=== PATIENT | male | born 1960 | race Caucasian/White ===

== ENCOUNTER 2020-06-25 12:52 | Inpatient (IN) | payer OTHER ==
[~2020-06-25] VITALS: Ht 177.8 cm; Wt 110.0 kg
[2020-06-25 13:10] LABS: BASOPHILS % (AUTO) 0.4 % (0.0-2.0); EOSINOPHILS % (AUTO) 0.1 % (1.0-6.0); HEMATOCRIT 41.7 % (41-53); HEMOGLOBIN 13.9 g/dL (13.5-17.5); LYMPHOCYTES # (AUTO) 0.6 K/uL (1.0-4.8); LYMPHOCYTES % (AUTO) 10.2 % (22.0-44.0); MEAN CORPUSCULAR HEMOGLOBIN 27.9 pg (26.0-34.0); MEAN CORPUSCULAR HGB CONC 33.2 G/dL (31.0-37.0); MEAN CORPUSCULAR VOLUME 84 fL (80-100); MONOCYTES # (AUTO) 0.3 K/uL (0.1-1.0); MONOCYTES % (AUTO) 5.2 % (2.0-9.0); NEUTROPHILS # (AUTO) 5.3 K/uL (1.8-7.7); NEUTROPHILS % (AUTO) 84.1 % (40.0-70.0); PLATELET COUNT (AUTO) 132 K/uL (150-450); RED BLOOD CELL COUNT(AUTO) 4.97 MIL/uL (4.50-5.90); RED CELL DISTRIBUTION WIDTH 14.9 % (11.5-14.5)
[2020-06-25] MEDS ORDERED: ATOR80TA PO (13:20)
[2020-06-25] MEDS ORDERED: ASPI81TA39 PO (13:20)
[2020-06-25] MEDS ORDERED: LISI-662 PO (13:20)
[2020-06-25] MEDS ORDERED: METO-391 PO (13:20)
[2020-06-25 13:30] LABS: ANION GAP 10 mmol/L (8-16); CALCIUM, TOTAL 8.2 mg/dL (8.8-10.5); CARBON DIOXIDE 22 mmol/L (22-29); CHLORIDE 100 mmol/L (98-107); GLOMERULAR FILTR. RATE CALC > 60 mL/min (>60); GLUCOSE,RANDOM 154 mg/dL (70-110); POTASSIUM 4.1 mmol/L (3.5-5.1); SODIUM SERUM 132 mmol/L (136-145); UREA NITROGEN, BLOOD 18 mg/dL (7-18)
[2020-06-25 13:36] LABS: LACTIC ACID 1.3 mmol/L (0.4-2.0)
[2020-06-25 13:46] LABS: B-TYPE NATRIURETIC PEPTIDE < 5 pg/mL (0-100)
[2020-06-25 13:52] LABS: ALANINE AMINOTRANSFERASE 105 U/L (12-78); ALBUMIN 3.2 g/dL (3.4-5.0); ALKALINE PHOSPHATASE 102 U/L (46-116); ASPARTATE AMINOTRANSFERASE 73 U/L (15-37); BILIRUBIN,TOTAL 0.7 mg/dL (0.1-1.0); C-REACTIVE PROTEIN QUANT 5.67 mg/dL (0.00-0.30); CREATINE KINASE, TOTAL ONLY 137 U/L (39-308); FERRITIN 555 ng/mL (26-388); LACTATE DEHYDROGENASE 502 U/L (85-227); LIPASE 243 U/L (73-393); TOTAL PROTEIN, SERUM 7.3 g/dL (6.4-8.2)
[2020-06-25 13:53] LABS: D-DIMER 0.5 mg/L FEU (0.00-0.50); PROTHROMBIN TIME 10.6 SEC (9.4-11.6)
[2020-06-25 13:55] LABS: INFLUENZA TYPE A NEGATIVE FOR TYPE A (NEGATIVE); INFLUENZA TYPE B NEGATIVE FOR TYPE B (NEGATIVE)
[2020-06-25] MEDS ORDERED: CefTRIAXone 1 GM/DEXTROSE 50 ML IV ONE (14:15)
[2020-06-25] MEDS ORDERED: ACETAMINOPHEN 500 MG TABLET PO ONE (14:15)
[2020-06-25] MEDS ORDERED: AZITHROMYCIN 500 MG/NS 250 ML IV ONE (14:15)
[2020-06-25] MEDS ORDERED: ONDANSETRON HCL 4 MG/2 ML VIAL IVP PRN (16:00)
[2020-06-25] MEDS ORDERED: MAGNESIUM HYDROXIDE SUSPENSION 30 ML UDCUP PO PRN (16:00)
[2020-06-25] MEDS ORDERED: MORPHINE SULFATE 2 MG/ML SYRINGE IVP PRN (16:00)
[2020-06-25] MEDS ORDERED: BISACODYL 10 MG RECTAL RECTAL SUPPOSITORY PR PRN (16:00)
[2020-06-25 16:46] VITALS: BP 120/74
[2020-06-25] MEDS: HEPARIN SODIUM,PORCINE 5,000 UNITS/ML VIAL SQ SCH ×2 (18:11→23:34)
[2020-06-25 20:00] VITALS: BP 130/74
[2020-06-25] MEDS: DOCUSATE SODIUM 100 MG CAPSULE PO SCH (20:12)
[2020-06-25] MEDS: DEXAMETHASONE 4 MG TABLET PO SCH (20:13)
[2020-06-25] MEDS: ACETAMINOPHEN 325 MG TABLET PO PRN (21:09)
[2020-06-26] MEDS: ZOLPIDEM TARTRATE 5 MG TABLET PO PRN ×2 (00:51→20:43)
[2020-06-26 05:45] VITALS: BP 128/89
[2020-06-26 07:34] LABS: C-REACTIVE PROTEIN QUANT 8.03 mg/dL (0.00-0.30)
[2020-06-26 08:01] VITALS: BP 149/96
[2020-06-26] MEDS: ASPIRIN 81 MG CHEWABLE TABLET PO SCH (08:33)
[2020-06-26] MEDS: HEPARIN SODIUM,PORCINE 5,000 UNITS/ML VIAL SQ SCH ×3 (08:33→23:30)
[2020-06-26] MEDS: METOPROLOL SUCCINATE 50 MG ER TABLET PO SCH (08:33)
[2020-06-26] MEDS: DOCUSATE SODIUM 100 MG CAPSULE PO SCH ×2 (08:33→20:43)
[2020-06-26] MEDS: ATORVASTATIN CALCIUM 40 MG TABLET PO SCH (08:33)
[2020-06-26] MEDS: LISINOPRIL 20 MG TABLET PO SCH (08:33)
[2020-06-26] MEDS: PANTOPRAZOLE SODIUM 40 MG DR TABLET PO SCH (08:34)
[2020-06-26] MEDS: DEXAMETHASONE 4 MG TABLET PO SCH (08:34)
[2020-06-26] MEDS ORDERED: SODIUM CHLORIDE 0.9% 500 ML IV ONE (15:12)
[2020-06-26] MEDS: CefTRIAXone 1 GM/DEXTROSE 50 ML IV SCH (15:27)
[2020-06-26] MEDS: AZITHROMYCIN 500 MG/NS 250 ML IV SCH (16:27)
[2020-06-26 21:02] VITALS: BP 131/67
[2020-06-26 23:45] VITALS: BP 142/94
[2020-06-27 04:29] VITALS: BP 139/75
[2020-06-27 07:12] LABS: C-REACTIVE PROTEIN QUANT 3.38 mg/dL (0.00-0.30)
[2020-06-27 08:11] VITALS: BP 142/90
[2020-06-27] MEDS: LISINOPRIL 20 MG TABLET PO SCH (08:40)
[2020-06-27] MEDS: ATORVASTATIN CALCIUM 40 MG TABLET PO SCH (08:41)
[2020-06-27] MEDS: PANTOPRAZOLE SODIUM 40 MG DR TABLET PO SCH (08:41)
[2020-06-27] MEDS: DEXAMETHASONE 4 MG TABLET PO SCH (08:41)
[2020-06-27] MEDS: DOCUSATE SODIUM 100 MG CAPSULE PO SCH ×2 (08:41→23:02)
[2020-06-27] MEDS: METOPROLOL SUCCINATE 50 MG ER TABLET PO SCH (08:41)
[2020-06-27] MEDS: ASPIRIN 81 MG CHEWABLE TABLET PO SCH (08:42)
[2020-06-27] MEDS: HEPARIN SODIUM,PORCINE 5,000 UNITS/ML VIAL SQ SCH ×3 (08:42→23:02)
[2020-06-27] MEDS: AZITHROMYCIN 500 MG/NS 250 ML IV SCH (16:12)
[2020-06-27] MEDS: CefTRIAXone 1 GM/DEXTROSE 50 ML IV SCH (16:12)
[2020-06-27] MEDS: PARoxetine HCL 10 MG TABLET PO SCH (16:21)
[2020-06-27 20:17] VITALS: BP 140/87
[2020-06-27] MEDS: TraZODone HCL 100 MG TABLET PO PRN (23:02)
[2020-06-28 05:14] VITALS: BP 132/78
[2020-06-28 07:24] LABS: C-REACTIVE PROTEIN QUANT 1.27 mg/dL (0.00-0.30)
[2020-06-28] MEDS: ASPIRIN 81 MG CHEWABLE TABLET PO SCH (08:58)
[2020-06-28] MEDS: DEXAMETHASONE 4 MG TABLET PO SCH (08:58)
[2020-06-28] MEDS: HEPARIN SODIUM,PORCINE 5,000 UNITS/ML VIAL SQ SCH ×3 (08:58→23:31)
[2020-06-28] MEDS: METOPROLOL SUCCINATE 50 MG ER TABLET PO SCH (08:58)
[2020-06-28] MEDS: LISINOPRIL 20 MG TABLET PO SCH (08:59)
[2020-06-28] MEDS: ATORVASTATIN CALCIUM 40 MG TABLET PO SCH (08:59)
[2020-06-28] MEDS: PANTOPRAZOLE SODIUM 40 MG DR TABLET PO SCH (08:59)
[2020-06-28] MEDS: PARoxetine HCL 10 MG TABLET PO SCH (08:59)
[2020-06-28 09:00] VITALS: BP 149/90
[2020-06-28] MEDS: DOCUSATE SODIUM 100 MG CAPSULE PO SCH ×2 (09:00→20:32)
[2020-06-28 12:53] LABS: GLUCOMETER DEV NAME(LOC) 4E.2; GLUCOSE,POINT OF CARE 152 MG/DL (70-110)
[2020-06-28] MEDS: CefTRIAXone 1 GM/DEXTROSE 50 ML IV SCH (14:42)
[2020-06-28 14:51] VITALS: BP 127/77
[2020-06-28] MEDS: AZITHROMYCIN 500 MG/NS 250 ML IV SCH (16:40)
[2020-06-28 20:28] VITALS: BP 139/83
[2020-06-28] MEDS: TraZODone HCL 100 MG TABLET PO PRN (20:38)
[2020-06-29 06:00] VITALS: BP 125/83
[2020-06-29 07:06] LABS: EOSINOPHILS % (AUTO) 0 % (1.0-6.0); HEMATOCRIT 41.5 % (41-53); HEMOGLOBIN 13.5 g/dL (13.5-17.5); LYMPHOCYTES # (AUTO) 1.3 K/uL (1.0-4.8); LYMPHOCYTES % (AUTO) 12.1 % (22.0-44.0); MEAN CORPUSCULAR HEMOGLOBIN 27.3 pg (26.0-34.0); MEAN CORPUSCULAR HGB CONC 32.4 G/dL (31.0-37.0); MEAN CORPUSCULAR VOLUME 84 fL (80-100); MONOCYTES # (AUTO) 0.8 K/uL (0.1-1.0); MONOCYTES % (AUTO) 7.5 % (2.0-9.0); NEUTROPHILS # (AUTO) 8.6 K/uL (1.8-7.7); NEUTROPHILS % (AUTO) 80.4 % (40.0-70.0); PLATELET COUNT (AUTO) 230 K/uL (150-450); RED BLOOD CELL COUNT(AUTO) 4.93 MIL/uL (4.50-5.90); RED CELL DISTRIBUTION WIDTH 14.3 % (11.5-14.5)
[2020-06-29 07:37] LABS: ALANINE AMINOTRANSFERASE 118 U/L (12-78); ALBUMIN 2.8 g/dL (3.4-5.0); ALKALINE PHOSPHATASE 93 U/L (46-116); ANION GAP 10 mmol/L (8-16); ASPARTATE AMINOTRANSFERASE 71 U/L (15-37); BILIRUBIN,TOTAL 0.5 mg/dL (0.1-1.0); C-REACTIVE PROTEIN QUANT 0.55 mg/dL (0.00-0.30); CALCIUM, TOTAL 8.1 mg/dL (8.8-10.5); CARBON DIOXIDE 27 mmol/L (22-29); CHLORIDE 104 mmol/L (98-107); CREATININE 0.88 mg/dL (0.60-1.30); FERRITIN 474 ng/mL (26-388); GLOMERULAR FILTR. RATE CALC > 60 mL/min (>60); GLUCOSE,RANDOM 142 mg/dL (70-110); LACTATE DEHYDROGENASE 364 U/L (85-227); POTASSIUM 4.3 mmol/L (3.5-5.1); SODIUM SERUM 141 mmol/L (136-145); TOTAL PROTEIN, SERUM 6.2 g/dL (6.4-8.2); UREA NITROGEN, BLOOD 20 mg/dL (7-18)
[2020-06-29 08:15] VITALS: BP 150/85
[2020-06-29] MEDS: PANTOPRAZOLE SODIUM 40 MG DR TABLET PO SCH (08:53)
[2020-06-29] MEDS: DEXAMETHASONE 4 MG TABLET PO SCH (08:53)
[2020-06-29] MEDS: ASPIRIN 81 MG CHEWABLE TABLET PO SCH (08:53)
[2020-06-29] MEDS: METOPROLOL SUCCINATE 50 MG ER TABLET PO SCH (08:53)
[2020-06-29] MEDS: PARoxetine HCL 10 MG TABLET PO SCH (08:53)
[2020-06-29] MEDS: LISINOPRIL 20 MG TABLET PO SCH (08:54)
[2020-06-29] MEDS: HEPARIN SODIUM,PORCINE 5,000 UNITS/ML VIAL SQ SCH ×3 (08:54→23:56)
[2020-06-29] MEDS: DOCUSATE SODIUM 100 MG CAPSULE PO SCH ×2 (08:54→20:24)
[2020-06-29] MEDS: ATORVASTATIN CALCIUM 40 MG TABLET PO SCH (08:56)
[2020-06-29] MEDS: ACETAMINOPHEN 325 MG TABLET PO PRN ×3 (13:08→15:17)
[2020-06-29] MEDS: AZITHROMYCIN 500 MG/NS 250 ML IV SCH (15:01)
[2020-06-29] MEDS: TraZODone HCL 100 MG TABLET PO PRN (20:24)
[2020-06-29 20:33] VITALS: BP 147/92
[2020-06-29] MEDS: ZOLPIDEM TARTRATE 5 MG TABLET PO PRN (23:56)
[2020-06-30 07:00] LABS: BASOPHILS % (AUTO) 0.1 % (0.0-2.0); EOSINOPHILS % (AUTO) 0.1 % (1.0-6.0); HEMATOCRIT 42.2 % (41-53); HEMOGLOBIN 14.2 g/dL (13.5-17.5); LYMPHOCYTES # (AUTO) 1.4 K/uL (1.0-4.8); LYMPHOCYTES % (AUTO) 16.9 % (22.0-44.0); MEAN CORPUSCULAR HEMOGLOBIN 28.1 pg (26.0-34.0); MEAN CORPUSCULAR HGB CONC 33.6 G/dL (31.0-37.0); MEAN CORPUSCULAR VOLUME 84 fL (80-100); MONOCYTES # (AUTO) 0.8 K/uL (0.1-1.0); MONOCYTES % (AUTO) 9.9 % (2.0-9.0); NEUTROPHILS # (AUTO) 6.2 K/uL (1.8-7.7); PLATELET COUNT (AUTO) 249 K/uL (150-450); RED BLOOD CELL COUNT(AUTO) 5.04 MIL/uL (4.50-5.90); RED CELL DISTRIBUTION WIDTH 14.5 % (11.5-14.5)
[2020-06-30 07:12] LABS: ALANINE AMINOTRANSFERASE 168 U/L (12-78); ALBUMIN 2.9 g/dL (3.4-5.0); ALKALINE PHOSPHATASE 96 U/L (46-116); ANION GAP 6 mmol/L (8-16); ASPARTATE AMINOTRANSFERASE 76 U/L (15-37); BILIRUBIN,TOTAL 0.7 mg/dL (0.1-1.0); CALCIUM, TOTAL 8.5 mg/dL (8.8-10.5); CARBON DIOXIDE 27 mmol/L (22-29); CHLORIDE 103 mmol/L (98-107); CREATININE 0.89 mg/dL (0.60-1.30); GLOMERULAR FILTR. RATE CALC > 60 mL/min (>60); GLUCOSE,RANDOM 156 mg/dL (70-110); POTASSIUM 4.4 mmol/L (3.5-5.1); SODIUM SERUM 136 mmol/L (136-145); TOTAL PROTEIN, SERUM 6.4 g/dL (6.4-8.2); UREA NITROGEN, BLOOD 19 mg/dL (7-18)
[2020-06-30] MEDS: PARoxetine HCL 10 MG TABLET PO SCH (08:04)
[2020-06-30] MEDS: DOCUSATE SODIUM 100 MG CAPSULE PO SCH ×2 (08:04→20:02)
[2020-06-30] MEDS: ATORVASTATIN CALCIUM 40 MG TABLET PO SCH (08:04)
[2020-06-30] MEDS: DEXAMETHASONE 4 MG TABLET PO SCH (08:04)
[2020-06-30] MEDS: METOPROLOL SUCCINATE 50 MG ER TABLET PO SCH (08:05)
[2020-06-30] MEDS: PANTOPRAZOLE SODIUM 40 MG DR TABLET PO SCH (08:05)
[2020-06-30] MEDS: HEPARIN SODIUM,PORCINE 5,000 UNITS/ML VIAL SQ SCH ×3 (08:05→23:56)
[2020-06-30] MEDS: LISINOPRIL 20 MG TABLET PO SCH (08:05)
[2020-06-30] MEDS: ASPIRIN 81 MG CHEWABLE TABLET PO SCH (08:08)
[2020-06-30 08:31] VITALS: BP 133/89
[2020-06-30] MEDS: AZITHROMYCIN 500 MG/NS 250 ML IV SCH (15:25)
[2020-06-30 15:37] VITALS: BP 132/77
[2020-06-30] MEDS: HYDROCODONE/ACETAMINOPHEN 5-325 MG TABLET PO PRN (16:22)
[2020-06-30] MEDS: TraZODone HCL 100 MG TABLET PO PRN (20:02)
[2020-06-30 20:03] VITALS: BP 134/87
[2020-07-01 05:43] VITALS: BP 141/87
[2020-07-01 07:31] LABS: BASOPHILS % (AUTO) 0.1 % (0.0-2.0); EOSINOPHILS % (AUTO) 0.2 % (1.0-6.0); HEMATOCRIT 42.6 % (41-53); HEMOGLOBIN 13.9 g/dL (13.5-17.5); LYMPHOCYTES # (AUTO) 1.5 K/uL (1.0-4.8); MEAN CORPUSCULAR HEMOGLOBIN 27.4 pg (26.0-34.0); MEAN CORPUSCULAR HGB CONC 32.5 G/dL (31.0-37.0); MEAN CORPUSCULAR VOLUME 84 fL (80-100); MONOCYTES % (AUTO) 9.7 % (2.0-9.0); NEUTROPHILS # (AUTO) 7.8 K/uL (1.8-7.7); PLATELET COUNT (AUTO) 322 K/uL (150-450); RED BLOOD CELL COUNT(AUTO) 5.06 MIL/uL (4.50-5.90); RED CELL DISTRIBUTION WIDTH 14.8 % (11.5-14.5)
[2020-07-01 07:32] LABS: ALANINE AMINOTRANSFERASE 155 U/L (12-78); ALBUMIN 2.8 g/dL (3.4-5.0); ALKALINE PHOSPHATASE 96 U/L (46-116); ANION GAP 2 mmol/L (8-16); ASPARTATE AMINOTRANSFERASE 45 U/L (15-37); BILIRUBIN,TOTAL 0.7 mg/dL (0.1-1.0); CALCIUM, TOTAL 8.6 mg/dL (8.8-10.5); CARBON DIOXIDE 31 mmol/L (22-29); CHLORIDE 102 mmol/L (98-107); CREATININE 1.08 mg/dL (0.60-1.30); GLOMERULAR FILTR. RATE CALC > 60 mL/min (>60); GLUCOSE,RANDOM 194 mg/dL (70-110); POTASSIUM 4.5 mmol/L (3.5-5.1); SODIUM SERUM 135 mmol/L (136-145); TOTAL PROTEIN, SERUM 6.4 g/dL (6.4-8.2); UREA NITROGEN, BLOOD 23 mg/dL (7-18)
[2020-07-01 08:13] VITALS: BP 124/80
[2020-07-01] MEDS: METOPROLOL SUCCINATE 50 MG ER TABLET PO SCH ×2 (08:27→09:16)
[2020-07-01] MEDS: DEXAMETHASONE 4 MG TABLET PO SCH (08:27)
[2020-07-01] MEDS: PARoxetine HCL 10 MG TABLET PO SCH (08:28)
[2020-07-01] MEDS: ASPIRIN 81 MG CHEWABLE TABLET PO SCH (08:28)
[2020-07-01] MEDS: PANTOPRAZOLE SODIUM 40 MG DR TABLET PO SCH (08:28)
[2020-07-01] MEDS: ATORVASTATIN CALCIUM 40 MG TABLET PO SCH (08:28)
[2020-07-01] MEDS: LISINOPRIL 20 MG TABLET PO SCH (08:28)
[2020-07-01] MEDS: DOCUSATE SODIUM 100 MG CAPSULE PO SCH ×2 (08:28→20:03)
[2020-07-01] MEDS: HEPARIN SODIUM,PORCINE 5,000 UNITS/ML VIAL SQ SCH ×3 (08:29→23:44)
[2020-07-01 11:22] VITALS: BP 131/76
[2020-07-01 12:35] VITALS: BP 113/69
[2020-07-01] MEDS: HYDROCODONE/ACETAMINOPHEN 5-325 MG TABLET PO PRN (12:40)
[2020-07-01 15:16] VITALS: BP 111/80
[2020-07-01] MEDS: TraZODone HCL 100 MG TABLET PO PRN (20:03)
[2020-07-01 20:09] VITALS: BP 133/82
[2020-07-01] MEDS: ZOLPIDEM TARTRATE 5 MG TABLET PO PRN (21:51)
[2020-07-02 05:48] VITALS: BP 145/88
[2020-07-02 06:17] LABS: BASOPHILS % (AUTO) 0.1 % (0.0-2.0); EOSINOPHILS % (AUTO) 0.5 % (1.0-6.0); HEMATOCRIT 40.9 % (41-53); HEMOGLOBIN 13.7 g/dL (13.5-17.5); LYMPHOCYTES % (AUTO) 16.8 % (22.0-44.0); MEAN CORPUSCULAR HEMOGLOBIN 27.9 pg (26.0-34.0); MEAN CORPUSCULAR HGB CONC 33.5 G/dL (31.0-37.0); MEAN CORPUSCULAR VOLUME 83 fL (80-100); MONOCYTES # (AUTO) 1.1 K/uL (0.1-1.0); MONOCYTES % (AUTO) 8.9 % (2.0-9.0); NEUTROPHILS # (AUTO) 8.9 K/uL (1.8-7.7); NEUTROPHILS % (AUTO) 73.7 % (40.0-70.0); PLATELET COUNT (AUTO) 350 K/uL (150-450); RED BLOOD CELL COUNT(AUTO) 4.92 MIL/uL (4.50-5.90); RED CELL DISTRIBUTION WIDTH 14.6 % (11.5-14.5)
[2020-07-02 06:42] LABS: ALANINE AMINOTRANSFERASE 113 U/L (12-78); ALBUMIN 2.7 g/dL (3.4-5.0); ALKALINE PHOSPHATASE 93 U/L (46-116); ANION GAP 4 mmol/L (8-16); ASPARTATE AMINOTRANSFERASE 25 U/L (15-37); BILIRUBIN,TOTAL 0.6 mg/dL (0.1-1.0); CALCIUM, TOTAL 8.2 mg/dL (8.8-10.5); CARBON DIOXIDE 28 mmol/L (22-29); CHLORIDE 104 mmol/L (98-107); CREATININE 0.95 mg/dL (0.60-1.30); GLOMERULAR FILTR. RATE CALC > 60 mL/min (>60); GLUCOSE,RANDOM 172 mg/dL (70-110); POTASSIUM 4.5 mmol/L (3.5-5.1); SODIUM SERUM 136 mmol/L (136-145); TOTAL PROTEIN, SERUM 6.3 g/dL (6.4-8.2); UREA NITROGEN, BLOOD 21 mg/dL (7-18)
[2020-07-02 08:00] VITALS: BP 135/66
[2020-07-02] MEDS ORDERED: DEXAMETHASONE 4 MG TABLET PO SCH (09:00)
[2020-07-02] MEDS: LISINOPRIL 20 MG TABLET PO SCH (09:09)
[2020-07-02] MEDS: ATORVASTATIN CALCIUM 40 MG TABLET PO SCH (09:09)
[2020-07-02] MEDS: ASPIRIN 81 MG CHEWABLE TABLET PO SCH (09:09)
[2020-07-02] MEDS: HEPARIN SODIUM,PORCINE 5,000 UNITS/ML VIAL SQ SCH (09:09)
[2020-07-02] MEDS: PANTOPRAZOLE SODIUM 40 MG DR TABLET PO SCH (09:09)
[2020-07-02] MEDS: PARoxetine HCL 10 MG TABLET PO SCH (09:09)
[2020-07-02] MEDS: DOCUSATE SODIUM 100 MG CAPSULE PO SCH (09:09)
[2020-07-02] MEDS: METOPROLOL SUCCINATE 50 MG ER TABLET PO SCH (09:10)
[2020-07-02] MEDS ORDERED: ATOR40TA28 PO (10:22)
[2020-07-02] MEDS ORDERED: PARO10TA89 PO (10:24)
[2020-07-02] MEDS ORDERED: ACET-2865 PO (10:25)
[2020-07-02] MEDS ORDERED: TRAZ-257 PO (10:26)
== END 2020-07-02 11:05 | DRG 177 ==
LOC: EMS 12:56 → 6S 15:53
PROVIDERS: ADMIT Internal Medicine; ATTEND Internal Medicine
DX: U07.1 COVID-19 (principal); J12.89 Other viral pneumonia; J96.91 Respiratory failure, unspecified with hypoxia; E87.1 Hypo-osmolality and hyponatremia; E11.9 Type 2 diabetes mellitus without complications; E78.5 Hyperlipidemia, unspecified; I10 Essential (primary) hypertension; I25.10 Atherosclerotic heart disease of native coronary artery without angina pectoris; F41.9 Anxiety disorder, unspecified; E66.9 Obesity, unspecified; Z68.34 Body mass index [BMI] 34.0-34.9, adult; Z79.4 Long term (current) use of insulin
CPT/HCPCS: 82728; 83605; 83615; 85379; 85384; 86140; 87040; 87804; 93005; J0456; J0696; J1644; J2405; J7040; J8540; 36415-L1; 36415-TC; 71045-TC; U0003-CS